=== PATIENT | female | born 1945 | race Hispanic/Latino ===

== ENCOUNTER → 2023-10-24 | Outpatient (CLI) | payer OTHER | END | disposition home or self-care (01) | LOC: RAH 12:38 | PROVIDERS: ATTEND Family Medicine | DX: N95.0 Postmenopausal bleeding (principal); R10.2 Pelvic and perineal pain | CPT/HCPCS: 76856 ==

== ENCOUNTER → 2024-06-01 | Outpatient (CLI) | payer OTHER ==
--- NOTE | 2024-06-01 11:38 | HMCIMG ---
US ABDOMINAL COMPLETE HISTORY: Abnormal weight loss COMPARISON: None TECHNIQUE: Multiple transverse and longitudinal ultrasound images of the abdomen were obtained. FINDINGS: Abdominal aorta and inferior vena cava are unremarkable. The visualized portion of the pancreas is within normal limits. Liver measures 11.9 cm. The study is limited due to overlying bowel gas. Gallbladder is not well visualized. Common duct measures 6 mm. No evidence of gallbladder wall thickening is seen. Both kidneys are seen. Right kidney measures 10.1 x 4.5 x 3.4 cm. Left kidney measures 9.8 x 4.3 x 2.5 cm. No hydronephrosis is seen of the both kidneys. The spleen is grossly unremarkable. IMPRESSION: 1. Gallbladder is not well visualized. Borderline ductal dilatation is seen. 2. No hydronephrosis is seen.
== END | disposition home or self-care (01) ==
LOC: RAH 08:59
PROVIDERS: ATTEND Family Medicine
DX: R63.4 Abnormal weight loss (principal)
CPT/HCPCS: 76700